=== PATIENT | male | born 1990 | race Caucasian/White ===

== ENCOUNTER 2017-11-01 19:54 | Emergency (ER) | payer OTHER ==
[~2017-11-01] VITALS: Ht 177.8 cm; Wt 70.2 kg
[~2017-11-01 19:54] MED LIST: ZVRUNK PO
[2017-11-01 19:57] VITALS: TEMP 36.7; Ht 177.8 cm; Wt 70.2 kg
[2017-11-01] MEDS ORDERED: SODIUM CHLORIDE 0.9% 1000ML 1,000 ML IV STA (20:15)
--- NOTE | 2017-11-01 20:20 | EMERGENCY ROOM VISIT NOTE ---
History Report prepared by Luis Daniel: Ascencion Nino Under the Supervision of: Dr. David Chu M.D. First contact with patient: 20:04 Chief Complaint: SWELLING TO EXTREMITY Stated Complaint: SWELLING TO HANDS AND KNEES History of Present Illness The patient is a 27 year old male who presents to the Emergency Room with complaints of worsening joint swelling starting five days ago. He states the pain is in all of his joints, specifically his elbows wrists and knees legs bilaterally. He rates his pain as a 6/10 in severity. He describes the pain as a dull pain. The patient states that he developed a fever one night a week ago. He reports that he thought he was developing an infection, which prompted him to take Amoxicillin. The patient states he never saw a doctor for his symptoms and he obtained the Amoxicillin from his grandparents. He reports that earlier this week he was sanding his back deck. The patient states the day following he noticed his joints, including his knuckles, knees, and wrists began to swell. He reports that he had to sand the next day and noticed that his swelling worsened. The patient states he is unable to kneel without pain and it is painful to lift a gallon of milk. He denies any rashes. The patient does report he recently had to wrestle someone who was stealing from him in his neighbor's backyard about 10 days ago. He reports that he was not in the rosado and does not have any tick bites. Source of History: patient Onset: five days ago Position: other (joints) Symptom Intensity: 6/10 Quality: dull, other (swelling) Timing: worsening Associated Symptoms: + fevers, No rash Review of Systems See HPI for pertinent positives and negatives. A total of ten systems were reviewed and were otherwise negative. Past Medical & Surgical Medical Problems: (1) No significant past medical history Family History Hypertension Social History Smoking Status: Current Every Day Smoker Alcohol Use: none Drug Use: none Marital Status: Occupation Status: employed Current/Historical Medications Scheduled Amoxicillin (Amoxicillin), 250 MG PO BID Scheduled PRN Ibuprofen (Advil), 200-600 MG PO Q4H PRN for Pain Ibuprofen Tab (Motrin), 800 MG PO Q8H PRN for Pain Allergies Coded Allergies: No Known Allergies (Verified , 11/01/17) Physical Exam Vital Signs Date Time Temp Pulse Resp B/P (MAP) Pulse Ox O2 Delivery O2 Flow Rate FiO2 11/01/17 23:03 67 20 122/71 99 Room Air 11/01/17 21:36 72 16 133/78 98 Room Air 11/01/17 19:57 36.7 71 20 138/79 98 Room Air Physical Exam Physical Exam GENERAL: He is oriented to person, place, and time. He appears well-developed and well-nourished. He does not appear distressed. ____ HENT: Exam performed. Head: Normocephalic and atraumatic. Right Ear: External ear normal. No mastoid tenderness. Left Ear: External ear normal. No mastoid tenderness. Mouth/Throat: The oropharynx is clear and moist. No trismus in the jaw. No dental abscesses or uvula swelling. No oropharyngeal exudate or tonsillar abscesses. ____ EYES: Conjunctivae and EOM are normal. Pupils are equal, round, and reactive to light. Right eye exhibits no discharge. Left eye exhibits no discharge. No scleral icterus. ____ NECK: Normal range of motion. Neck supple. No JVD present. No spinous process tenderness present. No carotid bruit present. No rigidity. No tracheal deviation and normal range of motion present. No Brudzinski's sign and no Kernig 's sign noted. ____ CV: Normal rate, regular rhythm, normal heart sounds and intact distal pulses. There is no peripheral edema. Palpable radial pulses bue. ____ PULM/CHEST: Effort normal and breath sounds normal. No respiratory distress. No stridor. He has no wheezes. He has no rales. Chest Wall: He exhibits no tenderness. ____ ABD: The abdomen is soft. Bowel sounds are normal. He has no distension. No mass is present. There is no tenderness. There is no rebound, no guarding, no Cadet's sign and no tenderness at McBurney's point. Rovsig negative MUSC/SKEL: Normal range of motion. There is no peripheral edema, tenderness or deformity. There is no joint swelling. Full range of motion of all joints. Motor and sensation intact in the medial radial ulnar nerve distributions bilaterally. Palpable radial pulses bilateral upper extremities. Compartments soft bilateral upper extremities. LYMPH: No cervical adenopathy. ____ NEURO: He is alert and oriented to person, place, and time. He has normal strength. No cranial nerve deficit or sensory deficit. Coordination and gait normal. GCS eye subscore is 4. GCS verbal subscore is 5. GCS motor subscore is 6. Cerebellar tests wnl. ____ SKIN: Skin is warm and dry. He is not diaphoretic. ____ PSYCH: He has a normal mood and affect. His behavior is normal. Judgment and thought content normal. ____ Medical Decision & Procedures Laboratory Results 11/01/17 20:32 Red Blood Count 4.61, Mean Corpuscular Volume 82.6, Mean Corpuscular Hemoglobin 28.2, Mean Corpuscular Hemoglobin Concent 34.1, Mean Platelet Volume 10.5, Neutrophils (%) (Auto) 72.3, Lymphocytes (%) (Auto) 19.5, Monocytes (%) (Auto) 4.9, Eosinophils (%) (Auto) 2.6, Basophils (%) (Auto) 0.5, Neutrophils # (Auto) 3.07, Lymphocytes # (Auto) 0.83, Monocytes # (Auto) 0.21, Eosinophils # (Auto) 0.11, Basophils # (Auto) 0.02 11/01/17 20:32 Test 11/01/17 20:32 White Blood Count 4.25 K/uL (4.8-10.8) Red Blood Count 4.61 M/uL (4.7-6.1) Hemoglobin 13.0 g/dL (14.0-18.0) Hematocrit 38.1 % (42-52) Mean Corpuscular Volume 82.6 fL (80-100) Mean Corpuscular Hemoglobin 28.2 pg (25-34) Mean Corpuscular Hemoglobin Concent 34.1 g/dl (32-36) Platelet Count 194 K/uL (130-400) Mean Platelet Volume 10.5 fL (7.4-10.4) Neutrophils (%) (Auto) 72.3 % Lymphocytes (%) (Auto) 19.5 % Monocytes (%) (Auto) 4.9 % Eosinophils (%) (Auto) 2.6 % Basophils (%) (Auto) 0.5 % Neutrophils # (Auto) 3.07 K/uL (1.4-6.5) Lymphocytes # (Auto) 0.83 K/uL (1.2-3.4) Monocytes # (Auto) 0.21 K/uL (0.11-0.59) Eosinophils # (Auto) 0.11 K/uL (0-0.5) Basophils # (Auto) 0.02 K/uL (0-0.2) RDW Standard Deviation 40.2 fL (36.4-46.3) RDW Coefficient of Variation 13.2 % (11.5-14.5) Immature Granulocyte % (Auto) 0.2 % Immature Granulocyte # (Auto) 0.01 K/uL (0.00-0.02) Erythrocyte Sedimentation Rate 10 mm/hr (0-14) Anion Gap 6.0 mmol/L (3-11) Est Creatinine Clear Calc Drug Dose 100.2 ml/min Estimated GFR () 106.9 Estimated GFR (Non- 92.3 BUN/Creatinine Ratio 13.1 (10-20) Calcium Level 8.5 mg/dl (8.5-10.1) Total Creatine Kinase 103 U/L (39-308) C-Reactive Protein 1.08 mg/dl (0-0.29) Lyme Disease IgG Antibody NEG (NEG) Lyme Disease IgM Antibody NEG (NEG) Anti-Streptolysin O Antibody Screen POS IU/ml (<200 IU) Anti-Streptolysin O Antibody Titer 200 IU/ml (<200 IU) Laboratory results reviewed by me Medications Administered Medications (Trade) Dose Ordered Sig/Stevan Route Start Time Stop Time Status Last Admin Dose Admin Sodium Chloride 1,000 ml @ 999 mls/hr Q1H1M STAT IV 11/01/17 20:15 11/01/17 21:15 DC 11/01/17 20:45 999 MLS/HR Ketorolac Tromethamine (Toradol Inj) 15 mg NOW STAT IV 11/01/17 22:49 11/01/17 22:50 DC 11/01/17 23:00 15 MG ECG Per My Interpretation Indication: other (arrhythmia) Rate (beats per minute): 69 Rhythm: other (sinus arrhythmia) Findings: other ([place] QRS QTC WNL, No ST elevation or depression) ED Course 2013: The patient was evaluated in room B11B. A complete history and physical exam was performed. 2015: Ordered Sodium Chloride 1000 ml @ 999 mls/hr IV. 2249: CBC within normal limits. BMP within normal limits with the exception of potassium 3.3, replaced orally in the emergency department. ASO titers positive. Given the patient's ASO titers are positive, ESR and CRP will be added. There is concern for possible poststreptococcal polyarthritis. Patient does not report any sort of penile discharge, or concern for STD, not concerned for disseminated gonococcal arthritis. Ordered Toradol Injection 15 mg IV. 2318: Vital signs stable. ESR within normal limits. CRP elevated at 1.08. Discussed with Dr. Phipps, infectious disease, he states he is not concerned about any sort of rheumatic fever or post streptococcal polyarthritis. He states that the ASO in 200 is not concerning and the patient does not need to be treated with antibiotics for any sort of streptococcal infection. He recommends that the patient follow-up with rheumatology. I did discuss this with the patient's family member at bedside, they state they will follow up with her PCP. Doctor Of Naprapathy met with the patient took down the information to try to facilitate appointment with PCP for follow-up as well as appointment with rheumatology.DISCHARGE - Plan of care discussed with patient and questions answered. The patient was given both verbal and printed discharge instructions. The patient verbalized understanding and ability to comply. The patient is to seek outpatient follow up as noted in the discharge instructions. The patient verbalized understanding and ability to comply. The patient is discharged in stable condition. The patient was instructed to return for worsening symptoms. Medical Decision 2249: CBC within normal limits. BMP within normal limits with the exception of potassium 3.3, replaced orally in the emergency department. ASO titers positive. Given the patient's ASO titers are positive, ESR and CRP will be added. There is concern for possible poststreptococcal polyarthritis. Patient does not report any sort of penile discharge, or concern for STD, not concerned for disseminated gonococcal arthritis. Ordered Toradol Injection 15 mg IV. 2318: Vital signs stable. ESR within normal limits. CRP elevated at 1.08. Discussed with Dr. Phipps, infectious disease, he states he is not concerned about any sort of rheumatic fever or post streptococcal polyarthritis. He states that the ASO in 200 is not concerning and the patient does not need to be treated with antibiotics for any sort of streptococcal infection. He recommends that the patient follow-up with rheumatology. I did discuss this with the patient's family member at bedside, they state they will follow up with her PCP. Doctor Of Naprapathy met with the patient took down the information to try to facilitate appointment with PCP for follow-up as well as appointment with rheumatology.DISCHARGE - Plan of care discussed with patient and questions answered. The patient was given both verbal and printed discharge instructions. The patient verbalized understanding and ability to comply. The patient is to seek outpatient follow up as noted in the discharge instructions. The patient verbalized understanding and ability to comply. The patient is discharged in stable condition. The patient was instructed to return for worsening symptoms. Medication Reconcilliation Current Medication List: was personally reviewed by me Blood Pressure Screening Patient's blood pressure: Elevated blood pressure Consults Time Called: [id number] Consulting Physician: Desire, GREG Returned Call: [phone] Phipps, infectious disease, he states he is not concerned about any sort of rheumatic fever or post streptococcal polyarthritis. He states that the ASO in 200 is not concerning and the patient does not need to be treated with antibiotics for any sort of streptococcal infection. He recommends that the patient follow-up with rheumatology. Impression Primary Impression: Polyarthritis Scribe Attestation The scribe's documentation has been prepared under my direction and personally reviewed by me in its entirety. I confirm that the note above accurately reflects all work, treatment, procedures, and medical decision making performed by me. Departure Information Prescriptions Ibuprofen Tab (MOTRIN) 800 Mg Tab 800 MG PO Q8H Y for Pain, #30 TAB Prov: David Chu M.D. 11/01/17 Referrals Rivera Guzman (PCP) Patient Instructions My [facility]
[2017-11-01] MEDS ORDERED: IBUP-1050 PO (20:36)
[2017-11-01] MEDS ORDERED: AMX250 PO (20:36)
[2017-11-01 20:47] LABS: BASO % 0.5 %; BASO ABS # 0.02 K/uL (0-0.2); EOS % 2.6 %; EOS ABS # 0.11 K/uL (0-0.5); HEMATOCRIT 38.1 % (42-52); IG# 0.01 K/uL (0.00-0.02); LYMPH % 19.5 %; LYMPH ABS # 0.83 K/uL (1.2-3.4); MEAN CELL VOLUME 82.6 fL (80-100); MEAN CORPUSCULAR HEMOGLOBIN 28.2 pg (25-34); MEAN CORPUSCULAR HGB CONC 34.1 g/dl (32-36); MEAN PLATELET VOLUME 10.5 fL (7.4-10.4); MONO % 4.9 %; MONO ABS # 0.21 K/uL (0.11-0.59); NEUT % 72.3 %; NEUT ABS # 3.07 K/uL (1.4-6.5); PLATELET COUNT 194 K/uL (130-400); RED CELL DISTRIBUTION WIDTH CV 13.2 % (11.5-14.5); RED CELL DISTRIBUTION WIDTH SD 40.2 fL (36.4-46.3); WHITE BLOOD COUNT 4.25 K/uL (4.8-10.8)
[2017-11-01 21:08] LABS: CALCIUM 8.5 mg/dl (8.5-10.1); CREATININE 1.08 mg/dl (0.60-1.40); POTASSIUM 3.3 mmol/L (3.5-5.1)
[2017-11-01] MEDS ORDERED: KETOROLAC TROMETHAMINE 30 MG/ML VIAL IV STA (22:49)
[2017-11-01] MEDS ORDERED: NICOTINE 7 MG/24 HR TDSY TD STA (23:05)
[2017-11-01] MEDS ORDERED: POTASSIUM CHLORIDE 10 MEQ TABCR PO STA (23:21)
[2017-11-01] MEDS ORDERED: IBUP-1451 PO (23:29)
[2017-11-01 23:47] VITALS: BP 126/74; PULSE 68; O2SAT 98
== END 2017-11-01 23:48 | disposition home or self-care (01) ==
LOC: C.EDB 19:56
DX: M13.0 Polyarthritis, unspecified (principal); F17.210 Nicotine dependence, cigarettes, uncomplicated; Z82.49 Family history of ischemic heart disease and other diseases of the circulatory system

== ENCOUNTER 2024-04-02 14:04 | Observation (INO) ==
--- OUTSIDE RECORDS SUMMARY | 2024-04-02 14:08 | External Medical Summary | Summary of Care ---
Author Name Unknown Organization [facility] Address [address] [place] [address] Phone [phone] Care Team Providers Care Termite Technician Name Role Phone Joe Malik Primary Care Provid er Reason for Visit * Reason Comments Laceration Encounter Details Date Type Department Care Team (Latest Contact Info) Description 12/14/2023 4:00 PM EDT Convenient Care Visit [address] [id number] Brooke Martínez PA-C [address] [facility] [place] [address] Laceration of left hand without foreign body, initial encounter*; Need for prophylactic vaccination with combined zzeyrtkwbh-jbdfwfe-c ertussis (DTP) vaccine Allergies No known active allergiesdocumented as of this encounter (statuses as of 12/14/2023) Medications Medication Sig Dispensed Refills Start Date End Date Status methylPREDNISolone 4 MG Oral Tablet Therapy Pack (Medrol Dosepack)Indication s:Hip pain, right follow package directions 21 Tablet 0 02/11/2023 Active Additional Information Patient not taking.Reported on 12/14/2023 Diclofenac Sodium 75 MG Oral Tablet Delayed Release (Voltaren)Indicatio ns:Hip pain, bilateral,Femoroace tabular impingement of both hips Take 1 Tablet by mouth 2 times a day as needed for Pain. With food. 60 Tablet 3 02/17/2023 Active Additional Information Patient not taking.Reported on 12/14/2023 documented as of this encounter (statuses as of 12/14/2023) Active Problems Problem Noted Date Diagnosed Date Reactive arthritis 11/26/2017 Insomnia 09/07/2006 Overview: ICD-10 update of inactive term ADVANCE DIRECTIVE INFORMATION 12/30/2005 Overview: Pt declines booklet. documented as of this encounter (statuses as of 12/14/2023) Immunizations Name Administration Dates Next Due Hepatitis B, 0-19 yrs 07/07/2006,05/28/2006 Meningococcal Conjugate Vaccine (Menactra/Menveo ) 05/21/2006 documented as of this encounter Social History Tobacco Use Types Packs/Day Years Used Date Smoking Tobacco: Every Day Cigarettes Smokeless Tobacco: Current Alcohol Use Standard Drinks/Week Comments No 0 (1 standard drink = 0.6 oz pur e alcohol) occasional PHQ-2 Answer Date Recorded PHQ-2 Score -1 06/06/2018 Sex and Gender Information Value Date Recorded Sex Assigned at Not on file Gender Identity Not on file Sexual Orientation Not on file Job Start Date Occupation Industry Not on file Not on file Not on file documented as of this encounter Last Filed Vital Signs Vital Sign Reading Time Taken Comments Blood Pressure 110/50 12/14/2023 3:06 PM EDT Pulse 73 12/14/2023 3:06 PM EDT Temperature 36 C (96.8 F) 12/14/2023 3:06 PM EDT Respiratory Rate 20 12/14/2023 3:06 PM EDT Oxygen Saturation 98% 12/14/2023 3:06 PM EDT Inhaled Oxygen Concentration - - Weight 72.6 kg (160 lb) 12/14/2023 3:06 PM EDT Height 175.3 cm (5' 9") 12/14/2023 3:06 PM EDT Body Mass Index 23.63 12/14/2023 3:06 PM EDT documented in this encounter Patient Instructions * Patient Instructions* Brooke Martínez PA-C - 12/14/2023 3:29 PM EDT Find out about the tetanus shot to make sure if had or not If not we can give here Keep dry for one day Gentle water after that w shower Sutures in for 12 days at least documented in this encounter Progress Notes * Brooke Martínez PA-C - 12/14/2023 3:22 PM EDTAssociated Order(s): Laceration Repair Post-Procedure Diagnose(s): Laceration of left hand without foreign body, initial encounter Subjective: Nursing Notes: Thalia Park, [facility] 12/14/23 1433 Signed Nursing Notes: CC: Chief Complaint Patient presents with Laceration Brief Hx: Patient complains of a laceration on left hand above thumb, last tetanus 05/16/2005 Duration/Onset: today OTC meds: no Accompanied by: self Sx are left hand laceration on a old ceramic tile , occurred about 3 hrs ago Bled a lot initially but has mostly stopped now. He applied direct pressure No numbness and can move hand ok Not sure when last tdap was but thinks was 2 yrs ago at another hospital. Pt declines Tdap today and will look into whether had when had a lac 2 yrs ago and was treated at [facility]. no sick contacts at home. Sig med hx/risk factors: none States had tetanus 2 years ago Review of Systems Constitutional: Negative for appetite change, fatigue and fever. Respiratory: Negative. Cardiovascular: Negative. Gastrointestinal: Negative. Musculoskeletal: Negative. Skin: Positive for wound. Neurological: Negative. PMH: Patient Active Problem List Diagnosis Code ADVANCE DIRECTIVE INFORMATION Insomnia G47.00 Reactive arthritis (HCC) M02.30 Current Outpatient Medications Medication Sig Dispense Refill methylPREDNISolone 4 MG Oral Tablet Therapy Pack (Medrol Dosepack) follow package directions (Patient not taking: Reported on 12/14/2023) 21 Tablet 0 Diclofenac Sodium 75 MG Oral Tablet Delayed Release (Voltaren) Take 1 Tablet by mouth 2 times a dayas needed for Pain. With food. (Patient not taking: Reported on 12/14/2023) 60 Tablet 3 No current facility-administered medications for this visit. No past medical history on file. No past surgical history on file. Review of patient's allergies indicates: No Known Allergies Objective: BP 110/50 | Pulse 73 | Temp 36 C (96.8 F) (Tympanic) | Resp 20 | Ht 1.753 m (5' 9") | Wt 72.6 kg (160 lb) | SpO2 98% | BMI 23.63 kg/m | BSA 1.88 m Physical Exam Constitutional: Appearance: Normal appearance. He is normal weight. Cardiovascular: Rate and Rhythm: Normal rate. Pulmonary: Effort: Pulmonary effort is normal. Musculoskeletal: General: Normal range of motion. Skin: Capillary Refill: Capillary refill takes less than 2 seconds. Findings: Lesion present. Comments: Left dorsal hand: L shaped lac, into the derm layer, 3 cm long end and 0.5 cm short side on the dorsal hand near the web btw thumb and index finger Neurological: Mental Status: He is alert and oriented to person, place, and time. Psychiatric: Mood and Affect: Mood normal. Behavior: Behavior normal. Jose Eduardo Moscoso is a 33 year old male patient. ICD-10-CM 1. Laceration of left hand without foreign body, initial encounter S61.412A 2. Need for prophylactic vaccination with combined bjostxrpiu-crqbdkp-jeofgjinx (DTP) vaccine Z23 No past medical history on file. Blood pressure 110/50, pulse 73, temperature 36 C (96.8 F), temperature source Tympanic, resp. rate 20, height 1.753 m (5' 9"), weight 72.6 kg (160 lb), SpO2 98%. Laceration Repair Date/Time: 12/14/2023 4:36 PM Performed by: Brooke Martínez PA-C Authorized by: Brooke Martínez PA-C Body area: upper extremity Location details: left hand Laceration length: 4 cm Contaminated: no. Foreign body present: ceramic tile. Tendon involvement: none Nerve involvement: none Vascular damage: no Anesthesia: local infiltration Anesthesia: Local Anesthetic: lidocaine 1% without epinephrine and topical anesthetic Anesthetic total: 4 mL Preparation: Patient was prepped and draped in the usual sterile fashion. Irrigation solution: saline Irrigation method: jet lavage Amount of cleaning: standard Debridement: none Degree of undermining: none Skin closure: 4-0 nylon Number of sutures: 7 Technique: simple Approximation: close Approximation difficulty: simple Dressinx4 sterile gauze, antibiotic ointment and gauze roll Patient tolerance: patient tolerated the procedure well with no immediate complications Brooke Martínez PA-C 12/14/2023 ASSESSMENT/PLAN: Laceration of left hand without foreign body, initial encounter (Primary) Need for prophylactic vaccination with combined npelffuvob-uypunug-rbhbhsjwp (DTP) vaccine Patient Instructions Find out about the tetanus shot to make sure if had or not If not we can give here Keep dry for one day Gentle water after that w shower Sutures in for [address] [facility] h/o provided on home care witih hand lac Over 30 minutes spent with patient exam, counseling, review of previous medical records and with documenting. Return instruction reviewed with pt in detail. Reasons to report to the ED were also reviewed. Voiced understanding Advised to follow up if no improvement in 3-5days. Brooke Martínez PA-C documented in this encounter Nursing Notes * Thalia Park CMA - 12/14/2023 2:31 PM EDT Nursing Notes: CC: Chief Complaint Patient presents with Laceration Brief Hx: Patient complains of a laceration on left hand above thumb, last tetanus 05/16/2005 Duration/Onset: today OTC meds: no Accompanied by: self documented in this encounter Miscellaneous Notes * Pt Handout (on AVS) - Brooke Martínez PA-C - 12/14/2023 4:07 PM EDT Images from the original note were not included. [id number] Hand Laceration: All Closures A laceration is a cut through the skin. Deep cuts usually need stitches. Minor cuts may be closed with surgical tape or skin adhesive. X-rays may be done if something may have entered the skin through the cut, such as broken glass. You may also be given a tetanus shot if you are not up-to-date on this vaccine and the nature of the cut may lead to tetanus. Home care Follow all directions for taking medicines that your healthcare provider may prescribe. o Your healthcare provider may prescribe an antibiotic. This is to help prevent infection. Take themedicine every day until it's gone, or you are told to stop. You should not have any left over. o Your healthcare provider may prescribe medicine for pain. Know how and when to take this medicine. If your provider did not prescribe pain medicine, you may use cosa-mze-acapcxb pain medicine. If you have chronic liver or kidney disease, or ever had a stomach ulcer or gastrointestinal bleeding, talk with your healthcare provider before using these medicines. Follow the healthcare provider?s directions on how to care for the cut. Keep the wound clean and dry. Don't get the wound wet until you are told it's OK to do so. If the bandage gets wet, remove it. Gently pat the wound dry with a clean cloth. Then put on a clean, drybandage. To help prevent infection, wash your hands with soap and water before and after caring for the wound. Caring for stitches. Once you no longer need to keep the stitches dry, clean the wound daily. First, remove the bandage. Then wash the area gently with soap and warm water, or as directed by the healthcare provider. Use a clean, wet cotton swab to loosen and remove any blood or crust that forms.After cleaning, apply a thin layer of antibiotic ointment if advised. Then put on a new bandage unless you are told not to. Caring for skin glue. Don?t put any liquid, ointment, or cream on the wound while the glue is inplace. It's OK to briefly shower but don't submerge under water for at least 7 days. Stay away fromactivities that cause heavy sweating. Protect the wound from sunlight. Don't scratch, rub, or pick at the adhesive film. Don't place tape directly over the film. The glue should fall off by itself within 5 to 10 days. Call your healthcare provider if you have skin blistering or excessive itching. Caring for surgical tape. Keep the area dry. If it gets wet, blot it dry with a clean towel. Surgical tape usually falls off within 7 to 10 days. If it has not fallen off after 10 days, you can take it off yourself. Put mineral oil or petroleum jelly on a cotton ball and gently rub the tape until it's removed. Shower as usual once you can get the wound wet, but don't soak the wound in water. This means notub baths or swimming until it's fully healed. Keep the wound out of prolonged direct sunlight, especially in the summer months. After the wound heals, continue to stay out of direct sunlight, or use a sunscreen with a high level of protection. Sunburn or sun exposure can increase scarring. Check the wound daily for signs of infection listed below. Even with correct treatment, a wound infection may sometimes occur. Follow-up care Follow up with your healthcare provider, or as advised. If you have stitches, they will have to be removed. When to seek medical advice Call your healthcare provider right away if any of the following occur: Wound bleeding not controlled by direct pressure Signs of infection, including increasing pain in the wound, increasing wound redness or swelling, or pus or bad odor coming from the wound Fever of 100.4F (38.C) or higher, or as directed by your healthcare provider Chills Stitches come apart or fall out or surgical tape falls off before 7 days Wound edges reopen Wound changes colors Numbness or weakness in the affected hand Decreased movement of the hand, or an individual finger or part of a finger Last Reviewed Date: 03/03/[id number] [employer]. All rights reserved. This information is not intended as a substitute for professional medical care. Always follow your healthcare professional's instructions. documented in this encounter Plan of Treatment Health Maintenance Due Date Last Done Comments Pneumococcal Vaccine: Pediatrics (0 to 5 Years) and At-Risk Patients (6 to 64 Years) (1 of 2 - PCV) 1994 Hepatitis C Screening 2006 Hepatitis B (4 of 4 - 4-dose series) 07/23/2006 07/07/2006, 05/28/2006, 05/16/2005 DTaP,Tdap,and Td Vaccines (7 - Td or Tdap) 05/16/2015 05/16/2005, 05/11/2003, 06/13/1993, Additional history exists Depression Screening 11/03/2018 11/03/2017 COVID-19 Vaccine (2022-24 season) 2023 Influenza Vaccine (FLU shot) (Season Ended) 2024 MENINGOCOCCAL (MENACTRA/MENVEO) Completed 05/21/2006 GARDASIL-HPV IMMUNIZATION SERIES Aged Out No longer eligible based on patient's age to complete this topic documented as of this encounter Medical Devices Not on filedocumented as of this encounter Procedures Procedure Name Priority Date/Time Associated Diagnosis Comments FL SMPL REPAIR SCALP/NECK/AX/GENIT /TRUNK 2.6-7.5CM Routine 12/14/2023 4:36 PM EDT Laceration of left hand without foreign body, initial encounter documented in this encounter Results * FL SMPL REPAIR SCALP/NECK/AX/GENIT/TRUNK 2.6-7.5CM (12/14/2023 4:36 PM EDT) Narrative Brooke Martínez PA-C - 12/14/2023 4:36 PM EDT Brooke Martínez PA-C 12/14/2023 9:09 PM Laceration Repair Date/Time: 12/14/2023 4:36 PM Performed by: Brooke Martínez PA-C Authorized by: Brooke Martínez PA-C Body area: upper extremity Location details: left hand Laceration length: 4 cm Contaminated: no. Foreign body present: ceramic tile. Tendon involvement: none Nerve involvement: none Vascular damage: no Anesthesia: local infiltration Anesthesia: Local Anesthetic: lidocaine 1% without epinephrine and topical anesthetic Anesthetic total: 4 mL Preparation: Patient was prepped and draped in the usual sterile fashion. Irrigation solution: saline Irrigation method: jet lavage Amount of cleaning: standard Debridement: none Degree of undermining: none Skin closure: 4-0 nylon Number of sutures: 7 Technique: simple Approximation: close Approximation difficulty: simple Dressinx4 sterile gauze, antibiotic ointment and gauze roll Patient tolerance: patient tolerated the procedure well with no immediate complications Brooke Martínez PA-C PROCDOC FORM documented in this encounter Visit Diagnoses Diagnosis Laceration of left hand without foreign body, initial encounter- Primary Need for prophylactic vaccination with combined jrxcsgraqe-yftxpfa-rzrhunwmo (DTP) vaccine documented in this encounter Care Teams Termite Technician Relationship Specialty Start Date End Date Joe Malik DO [address] [place] [address] [id number] PCP - General Internal Medicine 02/11/23 documented as of this encounter
[2024-04-02] MEDS: PANTOprazole 40 MG TAB PO STA (14:24)
[2024-04-02] MEDS: ALUMINUM/MAGNESIUM SUSP 30 ML UDC PO STA (14:24)
[2024-04-02] MEDS: ASPIRIN CHEW 324 MG PO STA (14:25)
--- NOTE | 2024-04-02 14:28 | Emergency Department Note ---
Impression & Plan Chest pain ED Provider Note NAME: BERTRAND RYDER AGE: 33 SEX: M : 1990 ARRIVES VIA: Walk-In INFORMANT: Patient, ED PROVIDER(S): Branden Pineda DO CHIEF COMPLAINT: Chest pain HPI: The patient is a 33-year-old male who presented to the emergency department for an evaluation of chest pain. The patient describes right-sided chest pain which began acutely prior to arrival. The patient was under significant stress. He was having problems with his child who just run off without permission. He presented with his significant other also provides part of the history. She states that he was very pale and listless. The patient denies having any lower extremity swelling or pain. He does have a history of early coronary artery disease as well as tobacco use. The patient does not take any medications and has no primary care physician. He took aspirin prior to arrival. ROS: See above HPI for pertinent positives & negatives. A total of 10 systems reviewed and were otherwise negative. PAST MEDICAL HISTORY: See Below PAST SURGICAL HISTORY: See Below FAMILY HISTORY: See Below SOCIAL HISTORY: See Below HOME MEDICATIONS: See Below ALLERGIES: See Below VITALS: See Below PHYSICAL EXAMINATION: GENERAL: The patient is awake and alert. The patient is somewhat anxious appearing. EYES: The conjunctivae are clear. The pupils are round and reactive. EARS, NOSE, MOUTH AND THROAT: The nose is without any evidence of any deformity. NECK: The neck is nontender and supple. RESPIRATORY: Normal respiratory effort is noted there is no evidence of wheezing rhonchi or rales CARDIOVASCULAR: Regular rate and rhythm noted there no murmurs rubs or gallops normal S1 normal S2. GASTROINTESTINAL: The abdomen is soft. Abdomen is nontender. MUSCULOSKELETAL/EXTREMITIES: There is no evidence of gross deformity full range of motion is noted in the hips and shoulders. SKIN: There is no obvious evidence of any rash. There are no petechiae, pallor or cyanosis noted. NEUROLOGIC: Patient is awake alert and oriented x3 MEDICAL DECISION MAKING: The patient is a 33-year-old male who presented to the emergency department for an evaluation of chest pain. The patient presented with chest pain that began prior to arrival. His significant other states he was having low heart rate and appeared to be pale. Upon arrival the patient was awake and alert. His color does appear to be normal. He did have some episodes of bradycardia while in the emergency department. The patient did not have any syncope. I discussed the patient's laboratory and radiographic studies with him. I also discussed the limitations of the emergency department workup for chest pain with him. Ultimately the patient is not 0 risk given his family history as well as his history of tobacco use. He may require further workup such as stress test or echocardiogram. He would at least require serial troponin measurements. For this reason I will discuss his condition with the on-call [facility] hospitalist group. Triage Nursing notes reviewed. Prior medical records reviewed Vital Signs: reviewed and remarkable for intermittent bradycardia. Differential diagnosis: Cardiac ischemia, aortic dissection, pulmonary embolism, pneumothorax, pneumonia, pericarditis, myocarditis, esophageal rupture, GERD, cholecystitis, pancreatitis, musculoskeletal, as well as other pathologies. ER treatment provided: See below Diagnostics interpreted by me: ECG: EKG was obtained in the emergency department. My interpretation is sinus bradycardia at 46 bpm. There was no ectopy. LVH was noted but electrical criteria. No previous tracing was available. Cardiac Monitoring: An order was placed for continuous cardiac monitoring. The monitor shows a rate of 61/min with sinus bradycardia. Laboratory studies: As stated above and show below. Imaging studies: See below. Radiographic imaging was reviewed by myself Consultation(s): I discussed this case with the [facility] hospitalist, Dr Arce. Past Med/Surg History Problem List (Updated 04/02/24 @ 16:31 by Branden Pineda DO) Chest pain (Acute) Social History Smoking Status: Current every day smoker Tobacco Type: Cigarettes Preferred Language: [place]ese Feels Safe at Home: Yes Allergies Allergies Allergy/AdvReac Type Severity Reaction Status Date / Time No Known Allergies Allergy Unknown Verified 07/18/22 01:56 Home Meds Home Medications Medication Instructions Recorded Confirmed aspirin 1 tab PO DIRECTED PRN Pain 04/02/24 04/02/24 Results & Data (ED) Vital Signs Vital Signs - 24 hr 04/02/24 14:09 04/02/24 14:27 04/02/24 16:00 Temperature 36.1 C L Temperature Source Temporal Artery Scan Pulse Rate 52 L 58 L Pulse Rate [Apical] 61 Respiratory Rate 18 18 Respiratory Effort / Characteristics Non-Labored Spontaneous Respiratory Depth Normal Respiratory Pattern Regular Blood Pressure 121/78 Blood Pressure [Right Arm] 123/73 Blood Pressure Mean 92 Blood Pressure Mean [Right Arm] 89 Pulse Oximetry 99 99 Oxygen Delivery Method Room Air Room Air Sepsis Recent Fever Within 48 Hours No Sepsis New/Unexplained Change in Mental Status N/A Sepsis Action Taken by Nursing No Action Required Home Medications Current Medication List: was personally reviewed by me Laboratory Data Attestation: I reviewed the patient's lab results. 04/02/24 14:20 04/02/24 14:20 Lab Results 04/02/24 Range/Units 14:20 WBC 13.28 H (4.8-10.8) K/ul RBC 5.31 (4.70-6.10) M/uL Hgb 14.2 (14.0-18.0) g/dl Hct 44.7 (42.0-52.0) % MCV 84.2 (80.0-100.0) fL MCH 26.7 (25.0-34.0) pg MCHC 31.8 L (32.0-36.0) g/dL RDW Std Deviation 41.9 (36.4-46.3) fL RDW Coeff of Brina 13.7 (11.5-14.5) % Plt Count 199 (130-400) K/uL MPV 10.2 (9.4-12.4) fL Immature Gran % (Auto) 0.5 % Neut % (Auto) 85.3 % Lymph % (Auto) 8.4 % Dewitt % (Auto) 5.0 % Eos % (Auto) 0.5 % Baso % (Auto) 0.3 % Neut # (Auto) 11.34 H (1.40-6.50) K/uL Lymph # (Auto) 1.12 L (1.20-3.40) K/uL Dewitt # (Auto) 0.66 H (0.11-0.59) K/uL Eos # (Auto) 0.06 (0.00-0.50) K/uL Baso # (Auto) 0.04 (0.00-0.20) K/uL Immature Gran # (Auto) 0.06 (0.01-0.20) K/uL Sodium 140 (136-145) mmol/L Potassium 3.9 (3.5-5.1) mmol/L Chloride 104 (98-107) mmol/L Carbon Dioxide 31 (21-32) mmol/L Anion Gap 5 (3-11) BUN 9 (6-23) mg/dl Creatinine 0.85 (0.6-1.4) mg/dl Est Cr Clr Drug Dosing 118.2 ml/min Est GFR ( Amer) 130.8 ml/min Est GFR (Non-Af Amer) 112.9 ml/min BUN/Creatinine Ratio 10.6 (10-20) Glucose 90 (70-99(Fasting)) mg/dl Calcium 9.0 (8.6-10.3) mg/dl Total Bilirubin 0.4 (0.2-1.0) mg/dl AST 19 (13-39) U/L ALT 12 (7-52) U/L Alkaline Phosphatase 56 (34-104) U/L Troponin I High Sens 2.5 (0-20) pg/ml Total Protein 6.8 (6.0-8.3) gm/dl Albumin 4.4 (3.4-5.0) gm/dl Globulin 2.4 L (2.5-4.0) gm/dl Albumin/Globulin Ratio 1.8 (0.9-2) Lipase 7 L (11-82) U/L Administered Medications Sodium Chloride (Nss) 1,000 mls @ 999 mls/hr IV .Q1H1M ONE Stop: 04/02/24 16:58 Last Admin: 04/02/24 16:02 Dose: 999 mls/hr Documented By: COREY Discontinued Medications Al Hydrox/Mg Hydrox/Simethicone (Aluminum/Magnesium Susp 30 Ml Udc) 30 ml PO NOW STA Stop: 04/02/24 14:23 Last Admin: 04/02/24 14:24 Dose: 30 ml Documented By: NRShakila Aspirin (Aspirin Chew 324 Mg) 324 mg PO NOW STA Stop: 04/02/24 14:21 Last Admin: 04/02/24 14:25 Dose: 324 mg Documented By: NRShakila Pantoprazole Sodium (Pantoprazole 40 Mg Tab) 40 mg PO NOW STA Stop: 04/02/24 14:23 Last Admin: 04/02/24 14:24 Dose: 40 mg Documented By: COREY Imaging Data Attestation: I personally reviewed and interpreted this imaging study as follows: My Impression: 1 view chest x-ray was obtained in the emergency department. My interpretation is no free air or definite infiltrate, final report below. Radiologist's Impression: Chest X-Ray 04/02/24 14:20 XR chest 1V portable CLINICAL HISTORY: Chest pain, nonspecific COMPARISON STUDY: No previous studies for comparison. FINDINGS: Lung volumes are normal. Lungs are clear. There is no pneumothorax or pleural effusion. Cardiac size is normal. Mediastinal contours are normal. There is no evidence for pulmonary edema. IMPRESSION: No acute cardiopulmonary findings. ACT 112: Negative or not required by law. Electronically signed by: Chapin Jones M.D. 04/02/2024 2:49 PM Discharge Plan Visit Data Chief Complaint: Cardiac Assessment Stated Complaint: CHEST PAINS, LOST COLOR IN LIPS, LOW PULSE, CHILLS ED Provider: Branden Pineda Discharge Problem: Chest pain Patient Disposition: Being Evaluated by Hospitalist Forms Stand Alone Forms: [facility] [employer] Prescriptions Prescriptions: No Action aspirin 1 tab PO DIRECTED PRN (Reason: Pain) Rx Instructions: OTC Referrals Referrals: PCP,NO [Primary Care Provider] - Discharge Problem: Chest pain Qualifiers: Chest pain type: unspecified Qualified Code(s): R07.9 - Chest pain, unspecified
[2024-04-02 14:37] LABS: Basophils # (auto) 0.04 K/uL (0.00-0.20); Basophils % (auto) 0.3 %; Eosinophils # (auto) 0.06 K/uL (0.00-0.50); Eosinophils % (auto) 0.5 %; Hematocrit (blood only) 44.7 % (42.0-52.0); Hemoglobin 14.2 g/dl (14.0-18.0); Immature Granulocytes # (auto) 0.06 K/uL (0.01-0.20); Immature Granulocytes % (auto) 0.5 %; Lymphocytes # (auto) 1.12 K/uL (1.20-3.40); Lymphocytes % (auto) 8.4 %; Mean Corpuscular Hemoglobin 26.7 pg (25.0-34.0); Mean Corpuscular Hgb Conc 31.8 g/dL (32.0-36.0); Mean Corpuscular Volume 84.2 fL (80.0-100.0); Mean Platelet Volume 10.2 fL (9.4-12.4); Monocytes # (auto) 0.66 K/uL (0.11-0.59); Neutrophils # (auto) 11.34 K/uL (1.40-6.50); Neutrophils % (auto) 85.3 %; Platelet Count 199 K/uL (130-400); RDW Coefficient of Variation 13.7 % (11.5-14.5); RDW Standard Deviation 41.9 fL (36.4-46.3); Red Blood Count 5.31 M/uL (4.70-6.10); White Blood Count 13.28 K/ul (4.8-10.8)
[2024-04-02 14:50] LABS: Albumin Globulin Ratio 1.8 (0.9-2); Albumin Level 4.4 gm/dl (3.4-5.0); BUN Creatinine Ratio 10.6 (10-20); Bilirubin,Total 0.4 mg/dl (0.2-1.0); Creatinine Clr Calc Pharmacy 118.2 ml/min; Est GFR (African American) 130.8 ml/min; Est GFR (Non-African American) 112.9 ml/min; Globulin 2.4 gm/dl (2.5-4.0); Potassium 3.9 mmol/L (3.5-5.1); Total Protein 6.8 gm/dl (6.0-8.3)
--- NOTE | 2024-04-02 14:52 | XRay Report ---
XR chest 1V portable CLINICAL HISTORY: Chest pain, nonspecific COMPARISON STUDY: No previous studies for comparison. FINDINGS: Lung volumes are normal. Lungs are clear. There is no pneumothorax or pleural effusion. Car diac size is normal. Mediastinal contours are normal. There is no evidence for pulmonary edema. IMPRESSION: No acute cardiopulmonary findings. ACT 112: Negative or not required by law. Electronically signed by: Chapin Jones M.D. 04/02/2024 2:49 PM
[2024-04-02 14:56] LABS: Troponin I High Sensitivity 2.5 pg/ml (0-20)
[2024-04-02] MEDS: SODIUM CHLORIDE 0.9% 1,000 ML IV ONE (16:02)
[2024-04-02] MEDS ORDERED: MAGNESIUM HYDROXIDE SUSP 30 ML UDC PO PRN (17:16)
[2024-04-02] MEDS ORDERED: ALUMINUM/MAGNESIUM SUSP 30 ML UDC PO PRN (17:16)
[2024-04-02] MEDS ORDERED: ONDANSETRON INJ 2 MG/ML 2 ML VIAL IV PRN (17:16)
[2024-04-02] MEDS ORDERED: NITROGLYCERIN SL 0.4 MG/TAB TAB SL PRN (17:16)
[2024-04-02] MEDS ORDERED: ACETAMINOPHEN 325 MG TAB PO PRN (17:16)
[2024-04-02] MEDS: CALCIUM CARBONATE 500 MG CHEWABLE TAB PO SCH (17:24)
[2024-04-02] MEDS: SODIUM CHLORIDE 0.9% 1,000 ML IV SCH (17:26)
[2024-04-02] MEDS ORDERED: hydrOXYzine HCl 25 MG TAB PO PRN (17:31)
--- NOTE | 2024-04-02 17:34 | History & Physical Report ---
Date of Service April 02, 2024 Assessment & Plan (1) Chest pain: Plan Chest pain rule out ACS vs GERD [uses monster drink and tobacco, no current NSAID abuse (h/o such 2 yrs ago)]: Troponin x 1 negative, trend troponin, EKG with no acute ST or T changes, bradycardia noted. Telemetry monitoring. Echo. Cardiology consult given significant family history. PPI BID and tums trial. IVF. Lipid profile and a1c in am. Tobacco abuse: 1 to 1.5 packs a day, for about 20 years. Counseled regarding smoking cessation, nicotine patch while in the hospital. Anxiety attack: Patient had a stressful event today morning, was noted to be pale around lips and both hands with goose bumps per patient's 1 hour into chest pain. Hydroxyzine as needed for anxiety. Patient advised to cut down on the amount of Monster drink per day to none to decrease caffeine intake. Utox. Leukocytosis: Will get procalcitonin, likely secondary to acute distress today. DVT prophylaxis: Heparin subcu Full code History of Present Illness Chief Complaint: Chest pain Primary Care Provider: NO PCP 32-year-old male with no significant PMH comes in with complaint of upper central abdominal pain. Patient and her at bedside reports having stressful event today morning at home, 9-year-old kid ran away to fishing alone and they were very much stressed out and had a lengthy family discussion regarding this at home. At around 12 noon, patient started having upper mid abdominal pain, describes as " bruised rib in the inside", 8/10 in intensity, no radiation, took 2 baby aspirin at home, continuous chest pain since then up to my bedside examination, 5/10 in intensity currently, no warmth or sweating or palpitation. Patient's reports that 1 hr into the onset, patient was very cold with pale lips and hands, feeling numb in his hands, goosebumps, patient's reported " fear" in patient's eyes which has never been the case per her. Patient denies nausea, vomiting, diarrhea, fever, acute changes in appetite/bowel/bladder habits. 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 Patient does not follow PCP, does not have home medication, denies past medical history. Patient smokes 1 to 1.5 packs a day for about 20 years now, drinks alcohol less than 1 time a month, denies recreational drug use. Full code Reports family history of dad having heart attack in his his 50s, second heart attack "killed" his dad per patient. Also reports having grandfather having heart attack in his 60s. Plan of care discussed in detail with the patient and his at bedside, who voiced understanding and were agreeable to plan of care. Allergies Allergy/AdvReac Type Severity Reaction Status Date / Time No Known Allergies Allergy Unknown Verified 07/18/22 01:56 Home Medications Medication Instructions Recorded Confirmed Type aspirin 1 tab PO DIRECTED PRN Pain 04/02/24 04/02/24 History Past Med/Surg History Problem List (Updated 04/02/24 @ 16:31 by Branden Pineda DO) Chest pain (Acute) Social History Smoking Status: Current every day smoker Tobacco Type: Cigarettes Preferred Language: [place] Feels Safe at Home: Yes Review of Systems Review of Systems: Negative otherwise mentioned in HPI. Physical Exam Physical Exam: GENERAL: Alert and oriented x3. NAD, on RA. HEENT: No pallor, no icterus. Pupils equal, round and reactive to light. Oral mucosa moist. NECK: No JVD, no neck masses. HEART: S1 and S2 heard. Regular rate and rhythm. Bradycardia. No murmur, no gallop. RESPIRATORY SYSTEM: Normal AP diameter. No accessory muscle use. No wheezing, no crackles. ABDOMEN: Soft, bowel sounds present, nontender, no distention. CENTRAL NERVOUS SYSTEM: No facial droop. Speech is clear. Obeys simple commands. Moves extremities. EXTREMITIES: No edema, no erythema seen. Results & Data Results & Data Vital Signs (Past 12 Hours) Vital Signs Temp Pulse Pulse Resp BP BP Pulse Ox 04/02/24 16:00 61 18 123/73 99 04/02/24 14:27 58 L 04/02/24 14:09 36.1 C L 52 L 18 121/78 99 O2 Del Method 04/02/24 16:00 Room Air 04/02/24 14:27 04/02/24 14:09 Room Air (1) Chest pain Chest pain type: unspecified Qualified Code(s): R07.9 - Chest pain, unspecified
[2024-04-02] MEDS ORDERED: PANTOprazole 40 MG TAB PO SCH (21:00)
[2024-04-02] MEDS ORDERED: HEPARIN SOD 5,000 UNIT/0.5 ML VIAL SQ SCH (21:00)
--- NOTE | 2024-04-03 07:19 | Electrocardiogram Report ---
Test Reason : Blood Pressure : */* mmHG Vent. Rate : 46 BPM Atrial Rate : 46 BPM P-R Int : 170 ms QRS Dur : 92 ms QT Int : 406 ms P-R-T Axes : 2 101 9 degrees QTcB Int : 355 ms Sinus bradycardia Rightward axis Voltage criteria for left ventricular hypertrophy Abnormal ECG When compared with ECG of 01-Nov-2017 22:24, Vent. rate has decreased by 23 bpm QT has shortened Confirmed by Art eBllo ([id number]) on 04/03/2024 7:19:49 AM Referred By: REFERRED SELF Confirmed By: Art Bello
[2024-04-03] MEDS ORDERED: NICOTINE 21 MG/24 HR TDSY TD SCH (09:00)
--- NOTE | 2024-04-03 09:36 | Discharge Summary ---
Date of Service Apr 02, 2024 Admission HPI Per Admitting Provider 32-year-old male with no significant PMH comes in with complaint of upper central abdominal pain. Patient and her at bedside reports having stressful event today morning at home, 9-year-old kid ran away to fishing alone and they were very much stressed out and had a lengthy family discussion regarding this at home. At around 12 noon, patient started having upper mid abdominal pain, describes as " bruised rib in the inside", 8/10 in intensity, no radiation, took 2 baby aspirin at home, continuous chest pain since then up to my bedside examination, 5/10 in intensity currently, no warmth or sweating or palpitation. Patient's reports that 1 hr into the onset, patient was very cold with pale lips and hands, feeling numb in his hands, goosebumps, patient's reported " fear" in patient's eyes which has never been the case per her. Patient denies nausea, vomiting, diarrhea, fever, acute changes in appetite/bowel/bladder habits. 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 Patient does not follow PCP, does not have home medication, denies past medical history. Patient smokes 1 to 1.5 packs a day for about 20 years now, drinks alcohol less than 1 time a month, denies recreational drug use. Full code Reports family history of dad having heart attack in his his 50s, second heart attack "killed" his dad per patient. Also reports having grandfather having heart attack in his 60s. Plan of care discussed in detail with the patient and his at bedside, who voiced understanding and were agreeable to plan of care. Admission Exam Per Admitting Provider GENERAL: Alert and oriented x3. NAD, on RA. HEENT: No pallor, no icterus. Pupils equal, round and reactive to light. Oral mucosa moist. NECK: No JVD, no neck masses. HEART: S1 and S2 heard. Regular rate and rhythm. Bradycardia. No murmur, no gallop. RESPIRATORY SYSTEM: Normal AP diameter. No accessory muscle use. No wheezing, no crackles. ABDOMEN: Soft, bowel sounds present, nontender, no distention. CENTRAL NERVOUS SYSTEM: No facial droop. Speech is clear. Obeys simple commands. Moves extremities. EXTREMITIES: No edema, no erythema seen. Principal Diagnosis chest pain rule out acs Discharge Exam GENERAL: Alert and oriented x3. NAD, on RA. HEENT: No pallor, no icterus. Pupils equal, round and reactive to light. Oral mucosa moist. NECK: No JVD, no neck masses. HEART: S1 and S2 heard. Regular rate and rhythm. Bradycardia. No murmur, no gallop. RESPIRATORY SYSTEM: Normal AP diameter. No accessory muscle use. No wheezing, no crackles. ABDOMEN: Soft, bowel sounds present, nontender, no distention. CENTRAL NERVOUS SYSTEM: No facial droop. Speech is clear. Obeys simple commands. Moves extremities. EXTREMITIES: No edema, no erythema seen. Discharge Data Allergies Allergy/AdvReac Type Severity Reaction Status Date / Time No Known Allergies Allergy Unknown Verified 07/18/22 01:56 Consultations 04/02/24 16:54 ED Decision to Admit Stat 04/02/24 17:16 Consult Cardiology Routine Hospital Course (1) Chest pain: Plan Pt was being managed for the following: Chest pain rule out ACS vs GERD [uses monster drink and tobacco, no current NSAID abuse (h/o such 2 yrs ago)]: Troponin x 1 negative, trend troponin, EKG with no acute ST or T changes, bradycardia noted. Telemetry monitoring. Echo. Cardiology consult given significant family history. PPI BID and tums trial. IVF. Lipid profile and a1c in am. Tobacco abuse: 1 to 1.5 packs a day, for about 20 years. Counseled regarding smoking cessation, nicotine patch while in the hospital. Anxiety attack: Patient had a stressful event today morning, was noted to be pale around lips and both hands with goose bumps per patient's 1 hour into chest pain. Hydroxyzine as needed for anxiety. Patient advised to cut down on the amount of Monster drink per day to none to decrease caffeine intake. Utox. Leukocytosis: Will get procalcitonin, likely secondary to acute distress today. DVT prophylaxis: Heparin subcu Full code I had spoken w/ cardiology and held further conversation w/ patient and his regarding plan of care and why AMA wouldn't be great idea (see HnP addendum). They left AMA. Total time spent on the patient care on Apr 02, 2024 is 110 minutes. Home Health Attestation I certify that this patient is under my care and that I, or a physicians physiotherapy assistant working with me, had a face to-face encounter that meets the home health [id number] encounter requirements with this patient. The encounter with the patient was in whole, or in part, for the following medical condition, which is the primary reason for home health care (list medical condition): I certify that, based on my findings, the following services are medically necessary home health services: My clinical findings support the need for the above services because: Further, I certify that my clinical findings support that this patient is ho mebound (i.e. absences from home require considerable and taxing effort and are for medical reasons or roman catholic services or infrequently or of short duration when for other reasons) because: Certification for Home Health Services: Based on the above findings, I certify that this patient is confined to the home and needs intermittent prison care, physical therapy and/or speech therapy or continues to need occupational therapy. The patient is under my care, and I have initiated the establishment of the plan of care. This patient will be followed by a physician who will periodically review the plan of care. Total Time Total Time Spent Total Time Spent (In Minutes): 110 min (for HnP and DC same day) Discharge Plan Discharge Items Patient Disposition: Against Medical Advice Reason For Visit: CHEST PAIN Discharge Diagnosis: cp ro acs Diet: Heart Healthy Medications and DC Order Prescriptions: No Action aspirin 1 tab PO DIRECTED PRN (Reason: Pain) Rx Instructions: OTC Discharge Orders: Left Against Medical Advice (Routine); Ordered 04/02/24 Ordered By: Fran Arce Admission Data Admit Date/Time: 04/02/24 17:17 Attending Provider: Fran Arce Admit Provider: Fran Arce Primary Care Provider: PCP,NO Other Providers: Fran Arce; Candace Ellis; Cam Cunha; Eligio Woo; Janusz Redman; Stanley Coughlin; Grzegorz Mojica; Lina Underwood; Claudia Muse; Sharon Fernandez; Candace Milian; John Perkins; Wilfredo Kearney; Vikki Leger; Virginie Johnston; Helena Scherer; Shan Noble; Robin Alexandre; Susana Bee
== END 2024-04-02 19:25 | disposition left against medical advice (07) ==
LOC: 2S 14:04 → ED 14:04 → 2S 18:07